=== PATIENT | male | born 1955 | race Caucasian/White ===

== ENCOUNTER 2021-09-30 10:42 | Inpatient (IN) | payer OTHER ==
--- OUTSIDE RECORDS SUMMARY | 2021-09-30 10:46 | XMS REPORT | Continuity of Care Document ---
:1955 Author Organization [facility] t Address [address] [place] [address] Care Team Providers Name Role Phone WALT BOLAND Attending Clinician Unavailable Payers Payer Name Policy Type Policy Number Effective Date Expiration Date S davon HUMANA 3 [id number] 2021 00:00:00 Problems This patient has no known problems. Allergies, Adverse Reactions, Alerts This patient has no known allergies or adverse reactions. Medications This patient has no known medications. Procedures This patient has no known procedures. Encounters Start End Encounter Admission Attending Care Care Encounter Source Date/Time Date/Time Type Type Clinicians Facility Department ID 2021-09-30 2021-09-30 Outpatient ANSON BOLAND [id number] 09:45:00 09:45:00 SHARON reyes Results This patient has no known results.
[2021-09-30] MEDS ORDERED: METOPROLOL TARTRATE 5 MG/5 ML INJ IV ONE (11:25)
[2021-09-30] MEDS ORDERED: ENOXAPARIN 100 MG/ML SYR SQ ONE (11:25)
[2021-09-30 11:52] LABS: Protime INR 1.25
[2021-09-30 11:56] LABS: Absolute Lymphocytes (CBC) 1.6 K/uL (0.7-4.9); Basophils % 0.6 % (0-1.3); Hematocrit 35.4 % (39.6-49.0); Lymphocytes % 18.1 % (15.3-44.8); MPV 7.3 fL (7.6-11.3); RBC Red Blood Cell Count 3.73 M/uL (4.33-5.43)
[2021-09-30 12:20] LABS: ALT/SGPT 31 U/L (12-78); AST/SGOT 17 U/L (15-37); Alkaline Phosphatase 82 U/L (45-117); BUN Blood Urea Nitrogen 11 mg/dL (7-18); Bicarbonate 23 mmol/L (21-32); Bilirubin Direct 0.2 mg/dL (0-0.2); Bilirubin Total 0.6 mg/dL (0.2-1.0); Glucose Level 119 mg/dL (74-106); NT PRO-BNP 2482 pg/mL (<125); Protein, Total 6.8 g/dL (6.4-8.2); Sodium Level 138 mmol/L (136-145); Troponin (Emerg Dept Use Only) < 0.02 ng/mL (0.0-0.045)
--- NOTE | 2021-09-30 12:39 | RAD REPORT ---
EXAM DESCRIPTION: RAD - Chest Single View - 09/30/2021 12:29 pm CLINICAL HISTORY: SOB Chest pain. COMPARISON: No comparisons FINDINGS: Portable technique limits examination quality. Mild bilateral pulmonary opacities are present suggesting pulmonary edema. The heart is moderately en larged in size. No displaced fractures. IMPRESSION: Mild CHF is possible.
--- NOTE | 2021-09-30 14:00 | ER ---
Nurse's Notes [facility] Name: Martin Walden Age: 66 yrs Sex: Male : 1955 Arrival Date: 09/30/2021 Time: 10:47 Bed 3 Private MD: Diagnosis: Unspecified atrial fibrillation-new onset Presentation: 09/30 10:56 Chief complaint: Patient states: Sent by PCP for evaluation and treatment of Afib. Pt ss c/o shortness of breath since 09/20. No known hx of Afib. Coronavirus screen: Client denies travel out of the [place] in the last 14 days. Ebola Screen: Patient denies exposure to infectious person. Patient denies travel to an Ebola-affected area in the 21 days before illness onset. Initial Sepsis Screen: Does the patient meet any 2 criteria? No. Patient's initial sepsis screen is negative. Does the patient have a suspected source of infection? No. Patient's initial sepsis screen is negative. Risk Assessment: Do you want to hurt yourself or someone else? Patient reports no desire to harm self or others. Onset of symptoms was September 20, 2021. 10:56 Method Of Arrival: Ambulatory ss 10:56 Acuity: KATYA 2 ss Historical: - Allergies: 10:59 No Known Allergies; ss - Home Meds: 10:59 amlodipine 10 mg tab 1 tab once daily [Active]; pravastatin 40 mg oral tab 1 tab once ss daily [Active]; aspirin 81 mg Oral tab 81 mg daily [Active]; lisinopril-hydrochlorothiazide 20-25 mg oral tab 1 tab once daily [Active]; - PMHx: 10:59 Hypertensive disorder; Hypercholesterolemia; ss - PSHx: 10:59 None; ss - Immunization history:: Client reports receiving the 2nd dose of the Covid vaccine. - Social history:: Smoking status: Patient denies any tobacco usage or history of. Screenin:53 Abuse screen: Denies threats or abuse. Nutritional screening: No deficits noted. vg1 Tuberculosis screening: No symptoms or risk factors identified. Fall Risk No fall in past 12 months (0 pts). No secondary diagnosis (0 pts). IV access (20 points). Ambulatory Aid- None/Bed Rest/Nurse Assist (0 pts). Gait- Normal/Bed Rest/Wheelchair (0 pts) Mental Status- Oriented to own ability (0 pts). Total Byers Fall Scale indicates No Risk (0-24 pts). Assessment: 11:25 General: Appears in no apparent distress. comfortable, Behavior is calm, cooperative. vg1 Pain: Denies pain. Neuro: Level of Consciousness is awake, alert, obeys commands, Oriented to person, place, time, situation. Cardiovascular: Reports nausea, Denies chest pain, Patient's skin is warm and dry. Edema SRAVAN lower extremities Rhythm is atrial fibrillation. Respiratory: Airway is patent Respiratory effort is even, unlabored, Breath sounds are clear bilaterally. GI: Abdomen is round non-distended, Reports nausea. : No signs and/or symptoms were reported regarding the genitourinary system. EENT: No signs and/or symptoms were reported regarding the EENT system. Derm: Skin is intact, is healthy with good turgor. Musculoskeletal: Circulation, motion, and sensation intact. 12:54 Reassessment: Patient appears in no apparent distress at this time. No changes from vg1 previously documented assessment. Patient and/or family updated on plan of care and expected duration. Pain level reassessed. Patient is alert, oriented x 3, equal unlabored respirations, skin warm/dry/pink. 13:45 Reassessment: Patient appears in no apparent distress at this time. No changes from vg1 previously documented assessment. Patient and/or family updated on plan of care and expected duration. Pain level reassessed. Patient is alert, oriented x 3, equal unlabored respirations, skin warm/dry/pink. 15:26 Reassessment: Patient appears in no apparent distress at this time. Patient and/or vg1 family updated on plan of care and expected duration. Pain level reassessed. Patient is alert, oriented x 3, equal unlabored respirations, skin warm/dry/pink. Patient denies pain at this time. 16:25 Reassessment: Patient appears in no apparent distress at this time. No changes from jd3 previously documented assessment. Patient and/or family updated on plan of care and expected duration. Pain level reassessed. Patient is alert, oriented x 3, equal unlabored respirations, skin warm/dry/pink. 17:25 Reassessment: Patient appears in no apparent distress at this time. Patient and/or jd3 family updated on plan of care and expected duration. Pain level reassessed. Patient is alert, oriented x 3, equal unlabored respirations, skin warm/dry/pink. Patient denies pain at this time. 18:24 Reassessment: Patient appears in no apparent distress at this time. Patient and/or jd3 family updated on plan of care and expected duration. Pain level reassessed. Patient is alert, oriented x 3, equal unlabored respirations, skin warm/dry/pink. Patient denies pain at this time. Vital Signs: 10:56 Pulse 98; Resp 19; Temp 97.9(TE); Pulse Ox 97% on R/A; Weight 113.4 kg; Height 6 ft. 1 ss in. (185.42 cm); Pain 0/10; 11:15 BP 134 / 94; Pulse 103; Resp 21; Pulse Ox 98% ; vg1 11:30 BP 136 / 76; Pulse 99; Resp 18; Pulse Ox 98% on R/A; vg1 11:38 BP 120 / 84; Pulse 90; Resp 20; Pulse Ox 97% on R/A; vg1 11:40 BP 116 / 80; Pulse 89; Resp 19; Pulse Ox 97% on R/A; vg1 12:00 BP 131 / 94; Pulse 87; Resp 17; Pulse Ox 97% ; jd3 12:20 BP 125 / 72; Pulse 92; Resp 17; Pulse Ox 96% ; jd3 12:40 BP 123 / 88; Pulse 91; Resp 18; Pulse Ox 97% ; jd3 13:00 BP 131 / 97; Pulse 108; Resp 18; Pulse Ox 98% ; al4 13:20 BP 130 / 88; Pulse 117; Resp 22; Pulse Ox 96% on R/A; al4 13:40 BP 133 / 83; Pulse 86; Resp 17; Pulse Ox 97% on R/A; al4 14:00 BP 125 / 79; Pulse 94; Resp 20; Pulse Ox 97% on R/A; al4 15:00 BP 126 / 90; Pulse 92; Resp 17; Pulse Ox 97% on R/A; vg1 16:26 BP 113 / 85; Pulse 114; Resp 19 S; Pulse Ox 98% on R/A; jd3 17:30 BP 156 / 89; Pulse 118; Resp 19 S; Pulse Ox 97% on R/A; jd3 18:24 BP 123 / 79; Pulse 108; Resp 16 S; Pulse Ox 97% on R/A; jd3 20:02 BP 127 / 86; Pulse 66; Resp 18; Pulse Ox 95% on R/A; lp1 10:56 Body Mass Index 32.98 (113.40 kg, 185.42 cm) ED Course: 10:47 Patient arrived in ED. mr 10:59 Triage completed. ss 10:59 Arm band placed on right wrist. ss 11:16 Jhonny Blair NP is PHCP. pm1 11:16 Micheal Villatoro MD is Attending Physician. pm1 11:22 Katerina Michele RN is Primary Nurse. vg1 11:35 Initial lab(s) drawn, by me, sent to lab. Inserted saline lock: 20 gauge in right vg1 antecubital area, using aseptic technique. Blood collected. 11:53 Patient has correct armband on for positive identification. Placed in gown. Bed in low vg1 position. Call light in reach. Side rails up X 1. 12:29 XRAY Chest (1 view) In Process Unspecified. EDMS 13:59 Bisi Cross MD is Hospitalizing Provider. pm1 16:14 Primary Nurse role handed off by Katerina Michele RN bd 16:25 Kaushik Mauricio RN is Primary Nurse. jd3 20:01 No provider procedures requiring assistance completed. Patient admitted, IV remains in lp1 place. Administered Medications: 11:36 Drug: Lovenox (enoxaparin) 1 mg/kg Route: Sub-Q; Site: right lower abdomen; vg1 12:30 Follow up: Response: No adverse reaction vg1 11:38 Drug: Lopressor (metoprolol) 5 mg Route: IVP; Site: right antecubital; vg1 11:45 Follow up: Response: No adverse reaction vg1 14:25 Drug: Lasix (furosemide) 40 mg Route: IVP; Site: right antecubital; vg1 15:28 Follow up: Response: No adverse reaction vg1 Output: 15:28 Urine: 1000ml (Voided); Total: 1000ml. vg1 Outcome: 14:00 Decision to Hospitalize by Provider. pm1 20:01 Admitted to Med/surg room 218, with chart, Report called to JUAN Kern lp1 20:01 Condition: stable 20:01 Instructed on the need for admit. 20:13 Patient left the ED. lp1 Signatures: Dispatcher [employer] EDMS Carlos Maya Goodwin, Jana mr EvetteRoya, RN RN ss Rimma Shelton RN RN lp1 Jhonny Blair, TARGET NETWORK ANALYST TARGET NETWORK ANALYST pm1 Kaushik Mauricio, RN RN jbeverly Michele, Katerina, RN RN vg1 Branden Quan4 Corrections: (The following items were deleted from the chart) 14:17 11:25 Cardiovascular: Reports nausea, Denies chest pain, Patient's skin is warm and vg1 dry. Rhythm is atrial fibrillation vg1 15:27 15:26 Reassessment: Patient appears in no apparent distress at this time. Patient vg1 and/or family updated on plan of care and expected duration. Pain level reassessed. Patient is alert, oriented x 3, equal unlabored respirations, skin warm/dry/pink. vg1
--- NOTE | 2021-09-30 14:00 | EDPHYS ---
Physician Documentation [facility] Name: Martin Walden Age: 66 yrs Sex: Male : 1955 Arrival Date: 09/30/2021 Time: 10:47 Bed 3 Private MD: ED Physician Micheal Villatoro HPI: 09/30 11:26 This 66 yrs old Male presents to ER via Ambulatory with complaints of AFIB, Shortness pm1 Of Breath. 11:26 The patient has shortness of breath with light activity. Onset: The symptoms/episode pm1 began/occurred 10 day(s) ago. The patient's shortness of breath is aggravated by light activity, is alleviated by rest. Associated signs and symptoms: Pertinent negatives: chest pain, productive cough, fever, nausea, vomiting. Severity of symptoms: in the emergency department the symptoms are unchanged. The patient has not experienced similar symptoms in the past. Historical: - Allergies: 10:59 No Known Allergies; ss - Home Meds: 10:59 amlodipine 10 mg tab 1 tab once daily [Active]; pravastatin 40 mg oral tab 1 tab once ss daily [Active]; aspirin 81 mg Oral tab 81 mg daily [Active]; lisinopril-hydrochlorothiazide 20-25 mg oral tab 1 tab once daily [Active]; - PMHx: 10:59 Hypertensive disorder; Hypercholesterolemia; ss - PSHx: 10:59 None; ss - Immunization history:: Client reports receiving the 2nd dose of the Covid vaccine. - Social history:: Smoking status: Patient denies any tobacco usage or history of. ROS: 11:26 Constitutional: Negative for fever, chills, and weight loss. pm1 11:26 Abdomen/GI: Negative for abdominal pain, nausea, vomiting, diarrhea, and constipation, Back: Negative for injury and pain, MS/Extremity: Negative for injury and deformity, Skin: Negative for injury, rash, and discoloration, Neuro: Negative for headache, weakness, numbness, tingling, and seizure. 11:26 Cardiovascular: Positive for edema, improves with elevation of legs at night and worse when dependent. Has had pedal edema for a a few years. denies hx of CHF, Negative for chest pain, orthopnea, palpitations. 11:26 Respiratory: Positive for shortness of breath, on exertion. Negative for cough, wheezing. 11:26 All other systems are negative. Exam: 11:26 Constitutional: This is a well developed, well nourished patient who is awake, alert, pm1 and in no acute distress. Head/Face: Normocephalic, atraumatic. 11:26 Back: No spinal tenderness. No costovertebral tenderness. Full range of motion. Skin: Warm, dry with normal turgor. Normal color with no rashes, no lesions, and no evidence of cellulitis. MS/ Extremity: Pulses equal, no cyanosis. Neurovascular intact. Full, normal range of motion. 11:26 Cardiovascular: Exam negative for acute changes, Rate: tachycardic, Rhythm: irregular, Pulses: no pulse deficits are appreciated, Heart sounds: normal, normal S1and S2, Edema: 2+ edema to level of left midcalf, left ankle, right midcalf and right ankle. 11:26 Respiratory: Exam negative for acute changes, respiratory distress, shortness of breath, Breath sounds: decreased breath sounds, that are mild, are located in both bases. 11:26 Abdomen/GI: Exam negative for acute changes, Inspection: abdomen appears normal, Palpation: abdomen is soft and non-tender, in all quadrants. 11:26 Neuro: Exam negative for acute changes, Orientation: is normal, Mentation: is normal, Motor: is normal, moves all fours. Vital Signs: 10:56 Pulse 98; Resp 19; Temp 97.9(TE); Pulse Ox 97% on R/A; Weight 113.4 kg; Height 6 ft. 1 ss in. (185.42 cm); Pain 0/10; 11:15 BP 134 / 94; Pulse 103; Resp 21; Pulse Ox 98% ; vg1 11:30 BP 136 / 76; Pulse 99; Resp 18; Pulse Ox 98% on R/A; vg1 11:38 BP 120 / 84; Pulse 90; Resp 20; Pulse Ox 97% on R/A; vg1 11:40 BP 116 / 80; Pulse 89; Resp 19; Pulse Ox 97% on R/A; vg1 12:00 BP 131 / 94; Pulse 87; Resp 17; Pulse Ox 97% ; jd3 12:20 BP 125 / 72; Pulse 92; Resp 17; Pulse Ox 96% ; jd3 12:40 BP 123 / 88; Pulse 91; Resp 18; Pulse Ox 97% ; jd3 13:00 BP 131 / 97; Pulse 108; Resp 18; Pulse Ox 98% ; al4 13:20 BP 130 / 88; Pulse 117; Resp 22; Pulse Ox 96% on R/A; al4 13:40 BP 133 / 83; Pulse 86; Resp 17; Pulse Ox 97% on R/A; al4 14:00 BP 125 / 79; Pulse 94; Resp 20; Pulse Ox 97% on R/A; al4 15:00 BP 126 / 90; Pulse 92; Resp 17; Pulse Ox 97% on R/A; vg1 16:26 BP 113 / 85; Pulse 114; Resp 19 S; Pulse Ox 98% on R/A; jd3 17:30 BP 156 / 89; Pulse 118; Resp 19 S; Pulse Ox 97% on R/A; jd3 18:24 BP 123 / 79; Pulse 108; Resp 16 S; Pulse Ox 97% on R/A; jd3 20:02 BP 127 / 86; Pulse 66; Resp 18; Pulse Ox 95% on R/A; lp1 10:56 Body Mass Index 32.98 (113.40 kg, 185.42 cm) ss MDM: 11:16 Patient medically screened. pm1 13:58 Data reviewed: vital signs. Data interpreted: Pulse oximetry: on room air is 97 %. pm1 Interpretation: normal. Counseling: I had a detailed discussion with the patient and/or guardian regarding: the historical points, exam findings, and any diagnostic results supporting the discharge/admit diagnosis, lab results, radiology results, the need for further work-up and treatment in the hospital. 09/30 11:17 Order name: Basic Metabolic Panel; Complete Time: 12:50 pm1 09/30 11:17 Order name: CBC with Diff; Complete Time: 11:59 pm1 09/30 11:17 Order name: LFT's; Complete Time: 12:50 pm1 09/30 11:17 Order name: Magnesium; Complete Time: 12:50 pm1 09/30 11:17 Order name: NT PRO-BNP; Complete Time: 12:50 pm1 09/30 11:17 Order name: PT-INR; Complete Time: 12:50 pm1 09/30 11:17 Order name: Troponin (emerg Dept Use Only); Complete Time: 12:50 pm1 09/30 15:38 Order name: CBC with Automated Diff EDMS 09/30 15:38 Order name: CBC with Automated Diff EDMS 09/30 15:38 Order name: Comprehensive Metabolic Panel EDMS 09/30 15:38 Order name: Comprehensive Metabolic Panel EDMS 09/30 15:38 Order name: Magnesium EDMS 09/30 15:38 Order name: Magnesium EDMS 09/30 15:38 Order name: NT PRO-BNP EDMS 09/30 11:17 Order name: XRAY Chest (1 view); Complete Time: 12:50 pm1 09/30 11:17 Order name: EKG; Complete Time: 11:18 pm1 09/30 12:48 Order name: EKG; Complete Time: 12:48 pm1 09/30 15:38 Order name: Echo with Doppler EDMS 09/30 15:38 Order name: Echo with Doppler EDMS 09/30 15:38 Order name: NT PRO-BNP EDMS 09/30 15:38 Order name: Phosphorus EDMS 09/30 15:38 Order name: Phosphorus EDMS 09/30 15:38 Order name: Troponin I EDMS 09/30 15:38 Order name: Troponin I EDMS 09/30 16:06 Order name: COVID-19 (Coronavirus) Document "Date of Onset" if Symptomatic jd3 09/30 16:31 Order name: CORONAVIRUS EDMS 09/30 17:29 Order name: SARS-COV-2 RT PCR; Complete Time: 17:29 EDMS 09/30 11:17 Order name: Cardiac monitoring; Complete Time: 11:43 pm1 09/30 11:17 Order name: EKG - Nurse/Tech; Complete Time: 11:43 pm1 09/30 11:17 Order name: IV Saline Lock; Complete Time: 11:43 pm1 09/30 11:17 Order name: Labs collected and sent; Complete Time: 11:43 pm1 09/30 11:17 Order name: O2 Per Protocol; Complete Time: 11:23 pm1 09/30 11:17 Order name: O2 Sat Monitoring; Complete Time: 11:23 pm1 09/30 12:48 Order name: EKG - Nurse/Tech; Complete Time: 13:06 pm1 09/30 15:38 Order name: CONS Physician Consult EDMS 09/30 15:38 Order name: Heart Healthy EDMS Administered Medications: 11:36 Drug: Lovenox (enoxaparin) 1 mg/kg Route: Sub-Q; Site: right lower abdomen; vg1 12:30 Follow up: Response: No adverse reaction vg1 11:38 Drug: Lopressor (metoprolol) 5 mg Route: IVP; Site: right antecubital; vg1 11:45 Follow up: Response: No adverse reaction vg1 14:25 Drug: Lasix (furosemide) 40 mg Route: IVP; Site: right antecubital; vg1 15:28 Follow up: Response: No adverse reaction vg1 Disposition: 10/01 08:46 Co-signature as Attending Physician, Micheal Villatoro MD I agree with the assessment and wilma plan of care. Disposition Summary: 09/30/21 14:00 Hospitalization Ordered Hospitalization Status: Inpatient Admission pm1 Provider: Bisi Cross pm1 Condition: Stable pm1 Problem: new pm1 Symptoms: have improved pm1 Bed/Room Type: Standard pm1 Location: Telemetry/MedSurg (Inpatient)(09/30/21 19:26) cg Room Assignment: [facility](09/30/21 19:26) Diagnosis - Unspecified atrial fibrillation - new onset pm1 Forms: - Medication Reconciliation Form pm1 - SBAR form pm1 Signatures: Dispatcher [employer] EDMS Maya Gonzalez Corey, MD MD cha Smirch, Shelby RN JUAN ss Kiara Michele RN RN cg Jhonny Blair, ALMOND PAN FINISHER ALMOND PAN FINISHER pm1 Katerina Michele RN RN vg1 Corrections: (The following items were deleted from the chart) 09/30 17:00 14:00 Telemetry/MedSurg (Inpatient) pm1 bd 17:00 14:00 pm1 bd : 17:00 HS ER HOLD bd cg 17:00 ERHOLD- bd cg
[2021-09-30] MEDS ORDERED: FUROSEMIDE 20 MG/ 2ML VIAL ONE ×2 (14:18→14:23)
[2021-09-30] MEDS ORDERED: ACETAMINOPHEN 500 MG TAB PO PRN (15:31)
[2021-09-30] MEDS ORDERED: ONDANSETRON 4 MG/2 ML VIAL IV PRN (15:31)
[2021-09-30] MEDS ORDERED: NA CHLORIDE 0.9% 1,000 ML IV SCH (16:00)
[2021-09-30] MEDS ORDERED: ENOXAPARIN 40 MG/0.4 ML SQ SCH (17:00)
[2021-09-30] MEDS ORDERED: METOPROLOL TARTRATE 5 MG/5 ML INJ IV PRN (18:08)
--- NOTE | 2021-09-30 18:13 | P.HP ---
Certification for Inpatient Patient admitted to: Inpatient With expected LOS: >2 Midnights Patient will require the following post-hospital care: None Practitioner: I am a practitioner with admitting privileges, knowledge of patient current condition, hospital course, and medical plan of care. Services: Services provided to patient in accordance with Admission requirements found in Title 42 Section 412.3 of the Code of Federal Regulations Patient History Date of Service: 09/30/21 Reason for admission: Shortness of breath/new onset atrial fibrillation History of Present Illness: Patient is a 66-year-old gentleman who comes to the hospital with difficulty breathing. Patient been short of breath for the last week. Patient's symptoms have progressively worsened. Patient was seen by his primary care provider 79 was found to be in atrial fibrillation with rapid ventricular response with heart rates in the 150s. Patient was sent to the emergency room for further evaluation. In the emergency room patient was given beta-shalini therapy. Patient's heart rate is better controlled. Patient will be admitted for further evaluation. Allergies No Known Allergies Allergy (Unverified 09/30/21 20:37) Home Medications: Amlodipine [Norvasc*] 10 mg PO DAILY 10/01/21 Carvedilol [Coreg] 25 mg PO BID 10/01/21 Lisinopril [Zestril] 20 mg PO DAILY 10/01/21 Pravastatin [Pravachol] 40 mg PO DAILY 10/01/21 - Past Medical/Surgical History -: Hypertension -: Dyslipidemia Past Surgical History: Patient denies surgical history - Family History Father Family History: Reviewed- Non-Contributory - Social History Smoking Status: Never smoker Alcohol use: No CD- Drugs: No Review of Systems 10-point ROS is otherwise unremarkable Physical Examination - Vital Signs Temperature: 98 F Blood Pressure: 110/80 Pulse: 140 Respirations: 18 Pulse Ox (%): 96 - Physical Exam General: Alert, In no apparent distress, Oriented x3 HEENT: Atraumatic, PERRLA, Mucous membr. moist/pink, EOMI, Sclerae nonicteric Neck: Supple, 2+ carotid pulse no bruit, No LAD, Without JVD or thyroid abnormality Respiratory: Clear to auscultation bilaterally, Normal air movement Cardiovascular: Irregular heart rate/rhythm, Systolic murmur Gastrointestinal: Normal bowel sounds, Soft and benign, Non-distended, No tenderness Musculoskeletal: No clubbing, No swelling, No tenderness Integumentary: No rashes Neurological: Normal gait, Normal speech, Normal strength at 5/5 x4 extr, Normal tone, Sensation intact, Cranial nerves 3-12 intact, Normal affect Lymphatics: No axilla or inguinal lymphadenopathy - Studies Laboratory Data (last 24 hrs) 09/30/21 11:35: PT 14.4 H, INR 1.25 09/30/21 11:35: WBC 9.00, Hgb 11.8 L, Hct 35.4 L, Plt Count 321 09/30/21 11:35: Sodium 138, Potassium 4.0, BUN 11, Creatinine 0.77, Glucose 119 H, Magnesium 2.0, Total Bilirubin 0.6, AST 17, ALT 31, Alkaline Phosphatase 82 Assessment & Plan - Problems (Diagnosis) (1) Atrial fibrillation with rapid ventricular response Current Visit: Yes Status: Acute (2) Shortness of breath Current Visit: Yes Status: Acute - Plan Plan: 1. Continue medication for rate control 2. Continue with anti coagulation 3. Echocardiogram 4. Cardiology consultation 5. Strict blood pressure control 6. Out of bed and ambulate 7. GI and DVT prophylaxis Discharge Plan: Home Plan to discharge in: Greater than 2 days - Advance Directives Does patient have a Living Will: No Does patient have a Durable POA for Healthcare: No - Code Status/Comfort Care Code Status Assessed: Yes Code Status: Full Code Critical Care: No Time Spent Managing PTS Care (In Minutes): 45
[2021-09-30 21:23] VITALS: BMI 33.0
[2021-09-30] MEDS: METOPROLOL TAR 50 MG TAB PO SCH (23:01)
[2021-09-30] MEDS: APIXABAN 5 MG TABLET PO SCH (23:01)
[2021-09-30] MEDS: NACHLORIDE 0.45% 1,000 ML IV SCH (23:08)
[2021-10-01 05:09] LABS: Absolute Lymphocytes (CBC) 1.8 K/uL (0.7-4.9); Basophils % 0.9 % (0-1.3); Lymphocytes % 22.3 % (15.3-44.8); MPV 7.1 fL (7.6-11.3); RBC Red Blood Cell Count 3.38 M/uL (4.33-5.43)
[2021-10-01] MEDS: NACHLORIDE 0.45% 1,000 ML IV SCH ×2 (05:22→17:15)
[2021-10-01 05:35] LABS: ALT/SGPT 27 U/L (12-78); AST/SGOT 12 U/L (15-37); Albumin 2.7 g/dL (3.4-5.0); Alkaline Phosphatase 75 U/L (45-117); BUN Blood Urea Nitrogen 12 mg/dL (7-18); Bicarbonate 25 mmol/L (21-32); Bilirubin Total 0.7 mg/dL (0.2-1.0); Glucose Level 112 mg/dL (74-106); Magnesium 2.2 mg/dL (1.8-2.4); NT PRO-BNP 2221 pg/mL (<125); Phosphorus 3.6 mg/dL (2.5-4.9); Potassium 3.6 mmol/L (3.5-5.1); Protein, Total 6.2 g/dL (6.4-8.2); Sodium Level 141 mmol/L (136-145); Troponin I < 0.02 ng/mL (0.0-0.045)
--- NOTE | 2021-10-01 07:08 | EKG ---
Test Date: 2021-09-30 Test Time: 13:01:31 Ecg Technician: EMMA MEASUREMENT RESULTS: Intervals: Rate: 95 [place]: QRSD: 148 QT: 392 QTc: 492 [place]: P: IL: QRS: 120 T: 70 INTERPRETIVE STATEMENTS: Atrial fibrillation Nonspecific intraventricular block Possible Lateral infarct, age undetermined Abnormal ECG No previous ECG available for comparison Electronically Signed On 10-01-21 07:04:45 EX CHEF by Aldo Hinton
--- NOTE | 2021-10-01 07:09 | EKG ---
Test Date: 2021-09-30 Test Time: 11:04:34 Major Sales Associate: BON MEASUREMENT RESULTS: Intervals: Rate: 105 IL: QRSD: 146 QT: 392 QTc: 518 [place]: P: IL: QRS: 107 T: 12 INTERPRETIVE STATEMENTS: Atrial fibrillation with rapid ventricular response Nonspecific intraventricular block Possible Lateral infarct, age undetermined Abnormal ECG No previous ECG available for comparison Electronically Signed On 10-01-21 07:04:49 MI[employer]OS[employer]FT APPLICATION DEVELOPER by Aldo Hinton
[2021-10-01] MEDS: VALSARTAN 80 MG TAB PO SCH (09:00)
[2021-10-01] MEDS ORDERED: POTASSIUM CL SA 10 MEQ TAB PO ONE (09:00)
[2021-10-01] MEDS: APIXABAN 5 MG TABLET PO SCH ×2 (09:46→20:30)
[2021-10-01] MEDS: METOPROLOL TAR 50 MG TAB PO SCH ×2 (09:46→20:29)
--- NOTE | 2021-10-01 14:42 | ECHO ---
HEIGHT: 6 ft 1 in WEIGHT: 250 lb 0 oz DATE OF STUDY: 10/01/[address]: Bisi Cross MD 2-DIMENSIONAL: YES M.MODE: YES DOPPLER: YES COLOR FLOW: YES TDS: NO PORTABLE: NO DEFINITY: NO BUBBLE STUDY: NO DIAGNOSIS: CONGESTIVE HEART FAILURE CARDIAC HISTORY: CATHERIZATION: SURGERY: PROSTHETIC VALVE: PACEMAKER: MEASUREMENTS (cm) DIASTOLIC (NORMALS) SYSTOLIC (NORMALS) IVSd 1.2 (0.6-1.2) LA Diam 5.3 (1.9-4.0) LVEF 43% LVIDd 5.0 (3.5-5.7) LVIDs 4.0 (2.0-3.5) %FS 21% LVPWd 1.2 (0.6-1.2) Ao Diam 2.9 (2.0-3.7) 2 DIMENSIONAL ASSESSMENT: RIGHT ATRIUM: NORMAL LEFT ATRIUM: DILATED RIGHT VENTRICLE: NORMAL LEFT VENTRICLE: NORMAL TRICUSPID VALVE: NORMAL MITRAL VALVE: NORMAL PULMONIC VALVE: NORMAL AORTIC VALVE: NORMAL PERICARDIAL EFFUSION: NONE AORTIC ROOT: NORMAL LEFT VENTRICULAR WALL MOTION: PARADOXICAL SEPTUM. MILD GLOBAL HYPOKINESIS. DOPPLER/COLOR FLOW: COMMENTS: PARADOXICAL SEPTUM. MILD GLOBAL HYPOKINESIS, EJECTION FRACTION 43%. ATRIAL FIBRILLATION. LEFT ATRIAL ENLARGEMENT. TECHNOLOGIST: JOANIE CLAY
[2021-10-02 04:41] LABS: BUN Blood Urea Nitrogen 11 mg/dL (7-18); Bicarbonate 25 mmol/L (21-32); Glucose Level 118 mg/dL (74-106); Sodium Level 140 mmol/L (136-145)
[2021-10-02] MEDS: APIXABAN 5 MG TABLET PO SCH ×2 (08:39→20:12)
[2021-10-02] MEDS: METOPROLOL TAR 50 MG TAB PO SCH (08:39)
[2021-10-02] MEDS: VALSARTAN 80 MG TAB PO SCH (08:40)
[2021-10-02] MEDS: NACHLORIDE 0.45% 1,000 ML IV SCH (08:40)
[2021-10-02] MEDS ORDERED: SOTALOL HCL 80 MG TAB PO ONE (11:23)
--- NOTE | 2021-10-02 11:27 | P.PN ---
Subjective Date of Service: 10/01/21 Patient feeling a little bit better. Shortness of breath is improving. Patient's echocardiogram revealed any ejection fraction of 40%. Spoke with Cardiology and recommending sotalol therapy. Continue with anti coagulation. Review of Systems 10-point ROS is otherwise unremarkable Physical Examination - Vital Signs Temperature: 98 F Blood Pressure: 110/80 Pulse: 140 Respirations: 18 Pulse Ox (%): 96 - Physical Exam General: Alert, In no apparent distress, Oriented x3 HEENT: Atraumatic, PERRLA, EOMI Neck: Supple, JVD not distended Respiratory: Clear to auscultation bilaterally, Normal air movement Cardiovascular: Irregular heart rate/rhythm Gastrointestinal: Soft and benign, Non-distended, No tenderness Musculoskeletal: No clubbing, No swelling, No tenderness Neurological: Normal speech, Sensation intact, Cranial nerves 3-12 intact, Abnormal strength - Studies Medications List Reviewed: Yes Assessment & Plan - Problems (Diagnosis) (1) Atrial fibrillation with rapid ventricular response Current Visit: Yes Status: Acute (2) Shortness of breath Current Visit: Yes Status: Acute (3) Cardiomyopathy Current Visit: Yes Status: Acute (4) Systolic CHF, acute Current Visit: Yes Status: Acute - Plan Plan: 1. Continue medication for rate control; will go ahead and start on sotalol today 2. Continue with anticoagulation; continue with Eliquis 3. Echocardiogram with ejection fraction of 40%. Hep-Lock IV and start diuretics 4. Cardiology consultation appreciated 5. Strict blood pressure control 6. Out of bed and ambulate; patient still with shortness of breath 7. GI and DVT prophylaxis - Advance Directives Does patient have a Living Will: No Does patient have a Durable POA for Healthcare: No - Code Status/Comfort Care Code Status: Full Code
--- NOTE | 2021-10-02 11:28 | P.PN ---
Date of Service: 10/02/21 Subjective Review of Systems 10-point ROS is otherwise unremarkable Physical Examination - Vital Signs Reviewed - Physical Exam General: Alert, In no apparent distress, Oriented x3 Respiratory: Clear to auscultation bilaterally, Normal air movement Cardiovascular: Irregular heart rate/rhythm Gastrointestinal: Soft and benign, Non-distended, No tenderness Musculoskeletal: No clubbing, No swelling, No tenderness Neurological: Normal speech, Sensation intact, Cranial nerves 3-12 intact, Abnormal strength Assessment & Plan - Problems (Diagnosis) (1) Atrial fibrillation with rapid ventricular response Current Visit: Yes Status: Acute (2) Shortness of breath Current Visit: Yes Status: Acute (3) Cardiomyopathy Current Visit: Yes Status: Acute (4) Systolic CHF, acute Current Visit: Yes Status: Acute - Plan Continue with plan of care as mentioned below: 1. Continue medication for rate control; started sotalol 2. Continue with anticoagulation; continue with Eliquis 3. Echocardiogram with ejection fraction of 40%. Hep-Lock IV and start oral diuretics 4. Cardiology consultation appreciated 5. Strict blood pressure control 6. Out of bed and ambulate; patient still with shortness of breath 7. GI and DVT prophylaxis - Advance Directives Does patient have a Living Will: No Does patient have a Durable POA for Healthcare: No - Code Status/Comfort Care Code Status: Full Code
[2021-10-02] MEDS: SOTALOL HCL 80 MG TAB PO SCH (16:20)
[2021-10-03 05:12] VITALS: O2SAT 95
[2021-10-03] MEDS: SOTALOL HCL 80 MG TAB PO SCH (05:20)
[2021-10-03] MEDS: VALSARTAN 80 MG TAB PO SCH (09:00)
[2021-10-03] MEDS: APIXABAN 5 MG TABLET PO SCH (09:07)
[2021-10-03 12:41] VITALS: BP 115/79; TEMP 97.4
[2021-10-03] MEDS ORDERED: ALBUMIN HUMAN 25% 12.5 GM, FUROSEMIDE 100 MG in NA CHLORIDE 0.9% 40 ML IV SCH (14:00)
--- NOTE | 2021-10-07 11:15 | CON ---
Date of Consultation: 10/01/2021 Reason For Consultation: Atrial fibrillation and shortness of breath. History Of Present Illness: Mr. Walden is 66, has history of hypertension, hypercholesterolemia for w hich he takes Norvasc and pravastatin, aspirin, lisinopril with hydrochlorothiazide. He comes in wit h new onset atrial fibrillation, heart rate of 98. He was normotensive. Came in with shortness of b reath. Denied chest pain, nausea, vomiting, diaphoresis, PND, orthopnea, pedal edema, or syncope. Allergies: NONE. Review of Systems: Negative. Social History: Negative. Family History: Negative. Medications: Listed earlier. Past Medical History: As listed earlier. Physical Examination: Vital Signs: Stable, afebrile. Atrial fibrillation, rate of 95. HEENT: Negative. Neck: Supple. No bruit. Chest: Clear to auscultation and percussion. Cardiac: Revealed a regular rhythm and rate. No murmurs, gallops, or rubs. Abdomen: Benign. Extremities: Revealed no clubbing, cyanosis, or edema. Diagnostic Data: Within normal limit except for the EKG. Impression And Plan: Mr. Walden, I think, can go home on sotalol, Eliquis, pravastatin, losartan, [place], and potassium. Echocardiogram showed an ejection fraction of 45%. We need to see him in the off ice as an outpatient. I think he should have an outpatient MPI or Lexiscan to evaluate his low eject ion fraction and atrial fibrillation. BYRON/ARAM Voice ID: [id number] Report ID: [id number]
== END 2021-10-03 14:10 | disposition home or self-care (01) | DRG 308 ==
LOC: ER 10:42 → ERHOLD 15:44 → 2ND 20:00
PROVIDERS: ADMIT Hospitalist; ATTEND Hospitalist
DX: I48.91 Unspecified atrial fibrillation (principal); I50.21 Acute systolic (congestive) heart failure; I11.0 Hypertensive heart disease with heart failure; I43 Cardiomyopathy in diseases classified elsewhere; E78.5 Hyperlipidemia, unspecified; Z79.82 Long term (current) use of aspirin; Z79.899 Other long term (current) drug therapy; Z20.822 Contact with and (suspected) exposure to COVID-19
CPT/HCPCS: 36415; 71045; 80048; 80053; 80076; 83735; 83880; 84100; 84484; 85025; 85610; 93005; 93306; 96372; 96374; 96375; 99285; J1650; J1940; P9047; U0003

== ENCOUNTER → 2023-12-07 | Day surgery (SDC) | payer OTHER ==
--- NOTE | 2023-12-07 19:39 | OP ---
Date of Procedure: 12/07/2023 Surgeon: GIANNI TROTTER Procedure Performed: Transesophageal echocardiogram. Indication: TE post Watchman. Description Of Procedure: After risks, benefits, and alternatives were explained, the patient agreed to the procedure and signed informed consent. The patient was brought to OR room 1. After proper t soni-out, propofol was administered by Anesthesia and then EFREM hose was inserted without difficulty. BO showed that Watchman seated well. No leak or thrombus. BO probe was removed without difficulty . The patient was sent to recovery in stable condition. Conclusion: Successful transesophageal echocardiogram with Watchman seated well with no thrombus or leak. Plan: Discontinue Eliquis. /ARAM Voice ID: [id number] Report ID: [id number]
--- NOTE | 2023-12-08 07:22 | TEE ---
TRANSESOPHAGEAL ECHOCARDIOGRAM REPORT CARDIOLOGY DEPARTMENT DATE OF STUDY: 12/07/2023 HEIGHT: 6'1" WEIGHT: 210 lbs DIAGNOSIS: STATUS POST WATCHMAN MONUMENT CARVER COMMENTS: BO CARDIAC HISTORY: CATHERIZATION: SURGERY: PROSTHETIC VALVE: PACEMAKER: 2 DIMENSIONAL ASSESSMENT: RIGHT ATRIUM: LEFT ATRIUM: RIGHT VENTRICLE: LEFT VENTRICLE: TRICUSPID VALVE: MITRAL VALVE: PULMONIC VALVE: AORTIC VALVE: PERICARDIAL EFFUSION: AORTIC ROOT: EJECTION FRACTION: 55-60 % LEFT VENTRICULAR WALL MOTION: DOPPLER/COLOR FLOW: COMMENTS: 1. TRANSESOPHAGEAL ECHOCARDIOGRAM INSERTED, NO DIFFICULTY 2. WATCHMAN IS SEATED WELL, NO LEAK, NO THROMBUS 3. NORMAL LEFT VENTRICULAR EJECTION FRACTION 55-60% TECHNOLOGIST: PENNY DON
== END | disposition home or self-care (01) ==
LOC: CCL 08:00 → EKG 11:00 → CCL 11:52
PROVIDERS: ATTEND Internal Medicine
DX: I48.11 Longstanding persistent atrial fibrillation (principal); Z98.890 Other specified postprocedural states; I25.10 Atherosclerotic heart disease of native coronary artery without angina pectoris; I11.0 Hypertensive heart disease with heart failure; I50.9 Heart failure, unspecified; E78.5 Hyperlipidemia, unspecified; Z87.891 Personal history of nicotine dependence; Z79.01 Long term (current) use of anticoagulants; Z79.82 Long term (current) use of aspirin; Z79.899 Other long term (current) drug therapy
CPT/HCPCS: 93312